=== PATIENT | female | born 1970 | race Caucasian/White ===

== ENCOUNTER 2016-10-29 18:36 | Emergency (ER) | payer MEDICAID ==
[2016-10-29] MEDS ORDERED: HYDROmorphone 0.5 MG/0.5 ML Syringe IVPUSH ONE (19:41)
[2016-10-29] MEDS ORDERED: Sodium Chloride 0.9% 1,000 ML IV SCH (19:45)
[2016-10-29] MEDS ORDERED: Ondansetron 4 MG/2 ML SDV IVPUSH ONE (20:03)
--- NOTE | 2016-10-29 20:40 | EDM.PDOC ---
[id number]: ABD PAIN Time Seen by Provider: 10/29/16 19:15 Source: Reports: Patient, Family History Limitations: Reports: No limitations - History of Present Illness INITIAL COMMENTS - FREE TEXT/NARRATIVE: 46-year-old female with diarrhea for the past 14 hours, but has now developed upper abdominal pain for the past 6 hours and a decrease in the diarrhea. Some nausea but no vomiting. She has a history of small bowel obstruction and it feels similar. No fevers or chills. Location: other (Across the upper abdomen) Quality: Reports: cramping Worsens with: Reports: other (Worsens with any oral intake including water) Associated Symptoms (-Female): Reports: diarrhea, nausea/vomiting. Denies: chest pain, back pain, shoulder pain, fever/chills - Related Data Allergies/ADRs: Allergies Allergy/AdvReac Type Severity Reaction Status Date / Time Sulfa (Sulfonamide Allergy Rash Verified 10/29/16 19:05 Antibiotics) Tetracyclines Allergy Rash Verified 10/29/16 19:05 Home Meds: Home Meds Ascorbic Acid [Vitamin C] 500 mg PO DAILY 02/23/16 [History] Cholecalciferol (Vitamin D3) [Vitamin D3] 2,000 unit PO DAILY 02/23/16 [History] Ferrous Sulfate [Iron] 325 mg PO DAILY 02/23/16 [History] Multivitamin [Multi-Vitamin Daily] 1 tab PO DAILY 02/23/16 [History] Calcium Citrate/Vitamin D3 [Calcium Citrate with D Tablet] 1 tab PO DAILY [History] Vitamin B Complex [B Complex] 1 tab PO DAILY 05/23/16 [History] Cyanocobalamin (Vitamin B-12) [Vitamin B-12] 1,000 mcg SL DAILY 08/25/16 [ History] Past Medical History HEENT History: Reports: Cataract, Impaired vision Cardiovascular History: Reports: Arrhythmia Other Cardiovascular History: hypotensive Respiratory History: Reports: None Gastrointestinal History: Reports: Bowel obstruction Genitourinary History: Reports: UTI, recurrent 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 Ablation on uterus. Musculoskeletal History: Reports: Fracture, Osteoarthritis Other Musculoskeletal History: ankle Neurological History: Reports: Headaches, chronic Psychiatric History: Reports: Anxiety, Depression, OCD Endocrine/Metabolic History: Reports: Other (see below) Other Endocrine/Metabolic History: Hypoglycemia Hematologic History: Reports: Anemia, B12 deficiency, Blood transfusion(s), Iron deficiency Immunologic History: Reports: None Oncologic (Cancer) History: Reports: None Dermatologic History: Reports: None - Infectious Disease History Infectious Disease History: Reports: Chicken pox - Past Surgical History Head Surgeries/Procedures: Reports: None HEENT Surgical History: Reports: Other (see below) Other HEENT Surgeries/Procedures: WISDOM TEETH EXTRACTED Cardiovascular Surgical History: Reports: None Respiratory Surgical History: Reports: None GI Surgical History: Reports: Bariatric procedure, Cholecystectomy, EGD, Hernia repair/other, Other (see below) Other GI Surgeries/Procedures: Exploratory surgery . Mesh wrapped around intestine. bowel obstruction surgery February 2016. RNY 2009 Female Surgical History: Reports: section, Tubal ligation Endocrine Surgical History: Reports: None Neurological Surgical History: Reports: Lumbar spine Musculoskeletal Surgical History: Reports: Carpal tunnel, Other (see below) Other Musculoskeletal Surgeries/Procedures:: back surgery, Ablation on neck Oncologic Surgical History: Reports: Biopsy of breast Dermatological Surgical History: Reports: Other (see below) Social & Family History - Family History Family Medical History: Noncontributory - Tobacco Use Smoking Status *Q: Never Smoker Second Hand Smoke Exposure: No - Caffeine Use Caffeine Use: Reports: Coffee - Alcohol Use Days Per Week of Alcohol Use: 4 Number of Drinks Per Day: 2 Total Drinks Per Week: 8 - Recreational Drug Use Recreational Drug Use: No Drug Use in Last 12 Months: No Recreational Drug Type: Reports: Marijuana/Hashish, Methamphetamine Recreational Drug Use Frequency: Not Used In Over 6 Months Recreational Drug Last Use: 17 YEARS AGO ED ROS GENERAL - Review of Systems Review Of Systems: See Below Constitutional: Reports: malaise. Denies: fever, chills HEENT: Reports: No symptoms Respiratory: Denies: Shortness of Breath Cardiovascular: Denies: Chest pain GI/Abdominal: Reports: Abdominal pain, Diarrhea, Nausea : Reports: no symptoms Skin: Reports: no symptoms Neurological: Reports: No Symptoms Psychiatric: Reports: No symptoms ED EXAM, GI/ABD - Physical Exam Exam: See Below Exam Limited By: No limitations General Appearance: alert, no apparent distress (Appears uncomfortable but not distressed) Eyes: bilateral: normal appearance Respiratory/Chest: no respiratory distress, lungs clear Cardiovascular: regular rate, rhythm GI/Abdominal: normal bowel sounds, soft, tenderness (Tender with some mild to moderate guarding across the upper abdomen) Neurological: alert, oriented Psychiatric: normal affect, normal mood Skin Exam: Warm, Dry Course - Vital Signs Last Recorded V/S: Last Vital Signs Temp 98.8 F 10/29/16 21:17 Pulse 82 10/29/16 21:17 Resp 16 10/29/16 21:17 BP 104/68 10/29/16 21:17 Pulse Ox 99 10/29/16 21:17 - Orders/Labs/Meds Orders: Active Orders 24 hr Category Date Time Status Abdomen 2V AP Flat Upright [CR] Stat Exams 10/29/16 19:41 Taken Abdomen Pelvis w Cont [CT] Stat Exams 10/29/16 20:36 Taken Labs: Laboratory Tests 10/29/16 10/29/16 Range/Units 19:48 19:48 WBC 10.7 (4.5-11.0) K/uL RBC 4.62 (3.30-5.50) M/uL Hgb 14.4 (12.0-15.0) g/dL Hct 43.5 (36.0-48.0) % MCV 94 (80-98) fL MCH 31 (27-31) pg MCHC 33 (32-36) % Plt Count 214 (150-400) K/uL Neut % (Auto) 90 H (36-66) % Lymph % (Auto) 5 L (24-44) % [place] % (Auto) 5 (2-6) % Eos % (Auto) 1 L (2-4) % Baso % (Auto) 0 (0-1) % Sodium 141 (140-148) mmol/L Potassium 4.1 (3.6-5.2) mmol/L Chloride 106 (100-108) mmol/L Carbon Dioxide 22 (21-32) mmol/L Anion Gap 13.0 (5.0-14.0) mmol/L BUN 17 (7-18) mg/dL Creatinine 0.7 (0.6-1.0) mg/dL Est Cr Clr Drug Dosing 96.62 mL/min Estimated GFR (MDRD) > 60 (>60) Glucose 111 H (74-106) mg/dL Calcium 8.0 L (8.5-10.1) mg/dL Meds: Medications Discontinued Medications Generic Name Dose Route Start Last Admin Trade Name Freq PRN Reason Stop Dose Admin Hydromorphone HCl 0.5 mg 10/29/16 19:41 10/29/16 20:00 Dilaudid IVPUSH 10/29/16 19:42 0.5 mg ONETIME ONE Administration Sodium Chloride 1,000 mls @ 1,000 mls/hr 10/29/16 19:45 10/29/16 19:59 Normal Saline IV 1,000 mls/hr ASDIRECTED LETY Administration Sodium Chloride 77 mls @ 3 mls/sec 10/29/16 20:50 10/29/16 20:58 Normal Saline IV 10/29/16 20:51 3 mls/sec ONETIME ONE Administration Iopamidol 123 ml 10/29/16 21:00 10/29/16 20:58 Isovue-300 (61%) IV 150 ml . DIRECTED LETY Administration Ondansetron HCl 4 mg 10/29/16 20:03 10/29/16 20:17 Zofran IVPUSH 10/29/16 20:04 4 mg ONETIME ONE Administration Sodium Chloride 10 ml 10/29/16 20:50 10/29/16 20:58 Saline Flush FLUSH 10 ml ONETIME PRN Administration PER RADIOLOGY PROTOCOL - Re-Assessments/Exams Free Text/Narrative Re-Assessment/Exam: 10/29/16 20:39 An IV was started and the patient was hydrated with 1 L of normal saline. CBC BMP were obtained. Patient was given 0.5 mg of Dilaudid and 4 mg of Zofran IV. Flat and upright x-ray showed several air-fluid levels, so this was followed with a CT of the abdomen and pelvis with IV contrast. 10/29/16 21:33 Patient responded well to the medication and fluids. CT of the abdomen showed a nonspecific enteritis and no evidence of acute bowel obstruction or other serious findings. Patient was feeling much better and was discharged to advance diet as tolerated recheck in 1 to 2 days if not improving. Departure - Departure Time of Disposition: 21:43 Disposition: Home, Self-Care 01 Condition: good Clinical Impression: Gastroenteritis, Abdominal pain Instructions: Viral Gastroenteritis, Adult, [id number] Referrals: PCP,None [Primary Care Provider] - Forms: ED Department Discharge Care Plan Goals: Increase diet as tolerated concentrating on fluids the first 12 hours. Consider recheck in 24-48 hours if not improving satisfactorily. Return anytime sooner if worsening or concerns. - My Orders Last 24 Hours: My Active Orders 10/29/16 19:41 Abdomen 2V AP Flat Upright [CR] Stat 10/29/16 20:36 Abdomen Pelvis w Cont [CT] Stat - Assessment/Plan Last 24 Hours: My Active Orders 10/29/16 19:41 Abdomen 2V AP Flat Upright [CR] Stat 10/29/16 20:36 Abdomen Pelvis w Cont [CT] Stat
[2016-10-29] MEDS ORDERED: Sodium Chloride 0.9% 10 ML Syringe FLUSH PRN (20:50)
[2016-10-29] MEDS ORDERED: Iopamidol 612 MG/ML 150 ML Bottle IV SCH (21:00)
[2016-10-29 21:18] VITALS: BP 104/68
--- NOTE | 2016-10-30 09:13 | CR ---
Abdomen 2V AP Flat Upright HISTORY: pain COMPARISON: CT scan 10/29/2016. FINDINGS: Scattered air-fluid levels on the upright film. No dilated loops of large or small bowel. Surgical clips in the gallbladder fossa and in the region of the stomach likely from prior gastric b ypass. No free air seen. Impression: Nonobstructive bowel gas pattern.
== END 2016-10-29 21:45 | disposition home or self-care (01) ==
LOC: JP.ED 18:36
DX: K52.9 Noninfective gastroenteritis and colitis, unspecified (principal); R10.10 Upper abdominal pain, unspecified; F41.9 Anxiety disorder, unspecified; F32.9 Major depressive disorder, single episode, unspecified; Z98.84 Bariatric surgery status; Z90.49 Acquired absence of other specified parts of digestive tract; Z98.51 Tubal ligation status; Z98.890 Other specified postprocedural states; Z79.899 Other long term (current) drug therapy; Z88.2 Allergy status to sulfonamides; Z88.1 Allergy status to other antibiotic agents
CPT/HCPCS: 36415; 74020; 74177; 80048; 85025; 96361; 96374; 96375; 99285; J1170; J2405; J7030; J7040; J7050

== ENCOUNTER 2021-02-07 12:47 | Inpatient (IN) | payer MEDICAID ==
--- NOTE | 2021-02-07 13:44 | EDM.PDOC ---
ED HPI GENERAL MEDICAL PROBLEM - General Chief Complaint: Abdominal Pain Stated Complaint: VIA [facility] Time Seen by Provider: 02/07/21 13:44 Source of Information: Reports: Patient History Limitations: Reports: No Limitations - History of Present Illness INITIAL COMMENTS - FREE TEXT/NARRATIVE: pt has had some small pains for the past few days. These would go away and then come back. Today she had sudden very severe which was persistent. She has not been having stools in the past 4 days. She has not been vomiting, Onset: Today, Sudden Duration: Hour(s): Location: Reports: Abdomen Associated Symptoms: Reports: Weakness Abdomen Pain Score (Numeric/FACES): 3 - Related Data Allergies Allergy/AdvReac Type Severity Reaction Status Date / Time Sulfa (Sulfonamide Allergy Rash Verified 02/07/21 12:57 Antibiotics) Tetracyclines Allergy Rash Verified 02/07/21 12:57 Home Meds: Home Meds NK [No Known Home Meds] 02/07/21 [History] Past Medical History HEENT History: Reports: Cataract, Impaired Vision Cardiovascular History: Reports: Arrhythmia Other Cardiovascular History: hypotensive Respiratory History: Reports: None Gastrointestinal History: Reports: Bowel Obstruction Genitourinary History: Reports: UTI, Recurrent 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 Ablation on uterus. Musculoskeletal History: Reports: Fracture, Osteoarthritis Other Musculoskeletal History: ankle Neurological History: Reports: Headaches, Chronic Psychiatric History: Reports: Anxiety, Depression, OCD Endocrine/Metabolic History: Reports: Other (See Below) Other Endocrine/Metabolic History: Hypoglycemia Hematologic History: Reports: Anemia, B12 Deficiency, Blood Transfusion(s), Iron Deficiency Immunologic History: Reports: None Oncologic (Cancer) History: Reports: None Dermatologic History: Reports: None - Infectious Disease History Infectious Disease History: Reports: Chicken Pox - Past Surgical History Head Surgeries/Procedures: Reports: None HEENT Surgical History: Reports: Other (See Below) Other HEENT Surgeries/Procedures: WISDOM TEETH EXTRACTED Cardiovascular Surgical History: Reports: None Respiratory Surgical History: Reports: None GI Surgical History: Reports: Bariatric Procedure, Cholecystectomy, EGD, Hernia Repair/Other, Other (See Below) Other GI Surgeries/Procedures: Exploratory surgery . Mesh wrapped around intestine. bowel obstruction surgery February 2016. RNY 2009 Female Surgical History: Reports: Section, Tubal Ligation Endocrine Surgical History: Reports: None Neurological Surgical History: Reports: Lumbar Spine Musculoskeletal Surgical History: Reports: Carpal Tunnel, Other (See Below) Other Musculoskeletal Surgeries/Procedures:: back surgery, Ablation on neck Oncologic Surgical History: Reports: Biopsy of Breast Dermatological Surgical History: Reports: Other (See Below) Social & Family History - Family History Family Medical History: No Pertinent Family History - Tobacco Use Tobacco Use Status *Q: Never Tobacco User Second Hand Smoke Exposure: No - Caffeine Use Caffeine Use: Reports: Coffee - Recreational Drug Use Recreational Drug Use: No ED ROS GENERAL - Review of Systems Review Of Systems: See Below Constitutional: Reports: No Symptoms HEENT: Reports: No Symptoms Respiratory: Reports: No Symptoms Cardiovascular: Reports: No Symptoms Endocrine: Reports: No Symptoms GI/Abdominal: Reports: Abdominal Pain, Constipation, Nausea Musculoskeletal: Reports: No Symptoms Skin: Reports: No Symptoms ED EXAM, GI/ABD - Physical Exam Exam: See Below Text/Narrative:: Pt arrived with pain in the rt upper and rt mid abdoman. Exam Limited By: No Limitations General Appearance: Alert, Moderate Distress, Other (pupils equal and reactive ) Ears: Normal TMs Nose: Normal Inspection Throat/Mouth: Normal Inspection Head: Atraumatic Neck: Normal Inspection Respiratory/Chest: No Respiratory Distress Cardiovascular: Regular Rate, Rhythm GI/Abdominal Exam: Tender, Other (pt is tender rt upper and mid abdoman. ) (Female) Exam: Normal External Exam Rectal (Female) Exam: Deferred Back Exam: Normal Inspection Extremities: Normal Inspection Neurological: Alert, Oriented, Normal Cognition Psychiatric: Anxious Course - Vital Signs Last Recorded V/S: Last Vital Signs Temp 36.3 C 02/07/21 12:58 Pulse 91 02/07/21 12:58 Resp 18 02/07/21 12:58 BP 124/78 02/07/21 12:58 Pulse Ox 97 02/07/21 12:58 - Orders/Labs/Meds Orders: Active Orders 24 hr Category Date Time Status Sodium Chloride 0.9% [Normal Saline] 1,000 ml Med 02/07/21 13:45 Active IV ASDIRECTED Medication Orders Sodium Chloride (Normal Saline) 1,000 mls @ 999 mls/hr IV ASDIRECTED LETY Last Admin: 02/07/21 13:54 Dose: 999 mls/hr Documented by: RU Labs: Laboratory Tests 02/07/21 02/07/21 02/07/21 Range/Units 13:55 13:55 13:55 WBC 7.2 (4.5-11.0) K/uL RBC 4.37 (3.30-5.50) M/uL Hgb 11.9 L D (12.0-15.0) g/dL Hct 37.4 (36.0-48.0) % MCV 86 (80-98) fL MCH 27 (27-31) pg MCHC 32 (32-36) % Plt Count 305 (150-400) K/uL Neut % (Auto) 80.9 H (36-66) % Lymph % (Auto) 12.9 L (24-44) % [place] % (Auto) 5.3 (2-6) % Eos % (Auto) 0.8 L (2-4) % Baso % (Auto) 0.1 (0-1) % Sodium 139 L (140-148) mmol/L Potassium 4.1 (3.6-5.2) mmol/L Chloride 103 (100-108) mmol/L Carbon Dioxide 27 (21-32) mmol/L Anion Gap 13.1 (5.0-14.0) mmol/L BUN 15 (7-18) mg/dL Creatinine 0.7 (0.6-1.0) mg/dL Est Cr Clr Drug Dosing 92.46 mL/min Estimated GFR (MDRD) > 60 (>60) Glucose 106 (74-106) mg/dL Calcium 8.3 L (8.5-10.1) mg/dL Total Bilirubin 0.4 (0.2-1.0) mg/dL AST 42 H D (15-37) U/L ALT 35 (12-78) U/L Alkaline Phosphatase 157 H D (46-116) U/L C-Reactive Protein 0.07 (0.0-0.3) mg/dL Total Protein 6.6 (6.4-8.2) g/dL Albumin 3.0 L (3.4-5.0) g/dL Globulin 3.6 H (2.3-3.5) g/dL Albumin/Globulin Ratio 0.8 L (1.2-2.2) Lipase 84 (73-393) U/L Urine Color (YELLOW) Urine Appearance (CLEAR) Urine pH (5.0-8.0) Ur Specific [place] (1.008-1.030) Urine Protein (NEGATIVE) mg/dL Urine Glucose (UA) (NEGATIVE) mg/dL Urine Ketones (NEGATIVE) mg/dL Urine Occult Blood (NEGATIVE) Urine Nitrite (NEGATIVE) Urine Bilirubin (NEGATIVE) Urine Urobilinogen (0.2-1.0) EU/dL Ur Leukocyte Esterase (NEGATIVE) Urine RBC (0-5) Urine WBC (0-5) Ur Epithelial Cells Amorphous Sediment Urine Bacteria Urine Mucus 02/07/21 Range/Units 15:16 WBC (4.5-11.0) K/uL RBC (3.30-5.50) M/uL Hgb (12.0-15.0) g/dL Hct (36.0-48.0) % MCV (80-98) fL MCH (27-31) pg MCHC (32-36) % Plt Count (150-400) K/uL Neut % (Auto) (36-66) % Lymph % (Auto) (24-44) % [place] % (Auto) (2-6) % Eos % (Auto) (2-4) % Baso % (Auto) (0-1) % Sodium (140-148) mmol/L Potassium (3.6-5.2) mmol/L Chloride (100-108) mmol/L Carbon Dioxide (21-32) mmol/L Anion Gap (5.0-14.0) mmol/L BUN (7-18) mg/dL Creatinine (0.6-1.0) mg/dL Est Cr Clr Drug Dosing mL/min Estimated GFR (MDRD) (>60) Glucose (74-106) mg/dL Calcium (8.5-10.1) mg/dL Total Bilirubin (0.2-1.0) mg/dL AST (15-37) U/L ALT (12-78) U/L Alkaline Phosphatase (46-116) U/L C-Reactive Protein (0.0-0.3) mg/dL Total Protein (6.4-8.2) g/dL Albumin (3.4-5.0) g/dL Globulin (2.3-3.5) g/dL Albumin/Globulin Ratio (1.2-2.2) Lipase (73-393) U/L Urine Color Yellow (YELLOW) Urine Appearance Cloudy A (CLEAR) Urine pH 6.5 (5.0-8.0) Ur Specific [place] 1.025 (1.008-1.030) Urine Protein Negative (NEGATIVE) mg/dL Urine Glucose (UA) Negative (NEGATIVE) mg/dL Urine Ketones Negative (NEGATIVE) mg/dL Urine Occult Blood Trace-intact H (NEGATIVE) Urine Nitrite Positive H (NEGATIVE) Urine Bilirubin Negative (NEGATIVE) Urine Urobilinogen 2.0 H (0.2-1.0) EU/dL Ur Leukocyte Esterase Negative (NEGATIVE) Urine RBC 0-5 (0-5) Urine WBC Not seen (0-5) Ur Epithelial Cells Not seen Amorphous Sediment Few Urine Bacteria Many Urine Mucus Not seen Meds: Medications Generic Name Dose Route Start Last Admin Trade Name Freq PRN Reason Stop Dose Admin Sodium Chloride 1,000 mls @ 999 mls/hr 02/07/21 13:45 02/07/21 13:54 Normal Saline IV 999 mls/hr ASDIRECTED LETY Administration Discontinued Medications Generic Name Dose Route Start Last Admin Trade Name Freq PRN Reason Stop Dose Admin Hydromorphone HCl 0.5 mg 02/07/21 13:57 02/07/21 14:16 Hydromorphone 0.5 Mg/0.5 Ml Syringe IVPUSH 02/07/21 13:58 0.5 mg ONETIME ONE Administration Sodium Chloride 70 mls @ 3 mls/sec 02/07/21 14:49 02/07/21 15:04 Normal Saline IV 02/07/21 14:50 3 mls/sec ASDIRECTED ONE Administration Iopamidol 129 ml 02/07/21 14:49 02/07/21 15:04 Iopamidol 612 Mg/Ml 150 Ml Bottle IV 129 ml . DIRECTED PRN Administration RADIOLOGY EXAM - Re-Assessments/Exams Free Text/Narrative Re-Assessment/Exam: 02/07/21 16:05 pt has a normal wbc. her crp is normal. Her urine does look infected. Her cat scan of the abdoman shows constipation and a partial small bowel obstruction Departure - Departure Time of Disposition: 16:06 Disposition: Admitted As Inpatient 65 Condition: Fair Clinical Impression: Partial small bowel obstruction, Dehydration, UTI (urinary tract infection) - Discharge Information Referrals: PCP,None [Primary Care Provider] - Forms: ED Department Discharge Care Plan Goals: admit to Dr Wells Sepsis Event Note (ED) - Evaluation Sepsis Screening Result: No Definite Risk - Focused Exam Vital Signs: Vital Signs Temp Pulse Resp BP Pulse Ox 02/07/21 12:58 36.3 C 91 18 124/78 97 02/07/21 12:49 36.3 C 91 18 124/78 97 - My Orders Last 24 Hours: My Active Orders 02/07/21 13:45 Sodium Chloride 0.9% [Normal Saline] 1,000 ml IV ASDIRECTED - Assessment/Plan Last 24 Hours: My Active Orders 02/07/21 13:45 Sodium Chloride 0.9% [Normal Saline] 1,000 ml IV ASDIRECTED
[2021-02-07] MEDS ORDERED: Sodium Chloride 0.9% 1,000 ML IV SCH (13:45)
[2021-02-07] MEDS ORDERED: HYDROmorphone 0.5 MG/0.5 ML Syringe IVPUSH ONE (13:57)
[2021-02-07] MEDS ORDERED: Iopamidol 612 MG/ML 150 ML Bottle IV PRN (14:49)
--- NOTE | 2021-02-07 15:26 | CT ---
Abdomen Pelvis w Cont CLINICAL HISTORY: Right-sided abdominal pain COMPARISON: 2017. TECHNIQUE: Transverse scans were obtained from the base of the lungs to the pubic symphysis following oral contrast and IV infusion of contrast.Auto dosage reduction and iterative reconstructiontechniques employed. FINDINGS: Patient is status post bariatric surgery. There is moderate distention of small bowel in the right the abdomen involving the anastomotic site. There is dilated small bowel in the right lower quadrant. There is some equalization of bowel content in this area. The lung bases show some patchy atelectasis bilaterally. The liver shows some mild intrahepatic ductal prominence.. The gallbladder has been removed. The spleen has a normal size and shape. The pancreas shows no mass or inflammatory change. The adrenal glands appear normal bilaterally . The kidneys show no mass, stones or hydronephrosis. The ureters have a normal course and caliber. The bladder has normal contour. Uterus is normal contour.. The aorta is free of aneurysm. There is no suspicious retroperitoneal adenopathy. IMPRESSION: Previous bariatric surgery and apparent revision Moderate dilatation of small bowel loop is in the right abdomen. There are normal caliber small bowel loops in the left abdomen. Partial distal small bowel obstruction suspected Moderate fecal retention right colon
[2021-02-07] MEDS ORDERED: cefTRIAXone 1 GM in Sodium Chloride 0.9% 50 ML IV ONE (16:08)
[2021-02-07] MEDS ORDERED: Promethazine 12.5 MG in Sodium Chloride 0.9% 50 ML IV PRN (16:21)
[2021-02-07] MEDS ORDERED: Promethazine 25 MG in Sodium Chloride 0.9% 50 ML IV PRN (16:22)
[2021-02-07] MEDS ORDERED: Ondansetron 4 MG/2 ML SDV IVPUSH PRN (17:00)
[2021-02-07] MEDS ORDERED: diphenhydrAMINE 50 MG/ML SDV IVPUSH PRN (17:00)
[2021-02-07] MEDS ORDERED: Scopolamine 1.5 MG Transdermal Patch TOP PRN (17:00)
[2021-02-07] MEDS ORDERED: Nicotine 14 MG/24 Hr Patch TRDERM PRN (17:00)
[2021-02-07] MEDS ORDERED: fentaNYL 100 MCG/2 ML SDV IVPUSH PRN (17:00)
[2021-02-07] MEDS ORDERED: diphenhydrAMINE 25 MG Cap PO PRN (17:00)
[2021-02-07] MEDS: Sodium Chloride 0.9% 1,000 ML IV SCH (17:40)
[2021-02-07] MEDS: Morphine 4 MG/ML Syringe IVPUSH PRN ×3 (18:31→23:17)
[2021-02-07 19:02] LABS: CORONAVIRUS COVID-19 NAA NEGATIVE (NEGATIVE)
[2021-02-07] MEDS: Lactulose Soln 10 GM/15 ML 15 ML UD Cup PO SCH (20:55)
[2021-02-08] MEDS: Morphine 4 MG/ML Syringe IVPUSH PRN ×3 (01:01→23:34)
[2021-02-08] MEDS: Sodium Chloride 0.9% 1,000 ML IV SCH ×4 (02:22→23:13)
[2021-02-08] MEDS: Lactulose Soln 10 GM/15 ML 15 ML UD Cup PO SCH ×2 (09:23→20:32)
[2021-02-08] MEDS: CHECK SCOPOLAMINE PATCH TOP SCH (09:25)
[2021-02-08] MEDS ORDERED: Bupivacaine 0.5%/EPINEPHrine 1:200,000 50 ML MDV ONE (11:06)
--- NOTE | 2021-02-08 12:40 | CR ---
Abdomen 2V AP Flat Upright CLINICAL HISTORY: Right abdominal pain FINDINGS: There is moderate retained feces in the right colon. There are scattered loops of dilated small bowel with air-fluid levels on the right. Patient is status post bariatric surgery and ventral hernia repair. IMPRESSION: Persistent moderate right-sided small bowel distention with air-fluid levels Moderate fecal retention right colon
--- NOTE | 2021-02-08 13:53 | CR ---
CHEST: 2 view CLINICAL HISTORY:Cough COMPARISON:CT 2016 FINDINGS: Patient has a diffuse right lung infiltrate. Heart size and pulmonary vascularity are normal. Left lung is clear Impression: Diffuse right lung pneumonia
[2021-02-08] MEDS: cefTRIAXone 1 GM in Sodium Chloride 0.9% 50 ML IV SCH (15:44)
--- NOTE | 2021-02-08 16:58 | PCM.CONS ---
H&P History of Present Illness - General Date of Service: 02/08/21 Admit Problem/Dx: Admission Diagnosis/Problem Admission Diagnosis/Problem Small bowel obstruction due to adhesions Source of Information: Patient, RN Notes Reviewed History Limitations: Reports: No Limitations - History of Present Illness Initial Comments - Free Text/Narative: Ms. Carrasco is a 50-year-old woman who I been asked to see by Dr. Wells for recommendations concerning management of right lung pneumonia. She reports a history of productive cough for the past week, with purulent sputum. She otherwise has been feeling relatively well until yesterday when she did develop abdominal pain. She was seen and evaluated in the emergency department. CT scan of the abdomen showed evidence of at least a partial bowel obstruction. She was admitted to the hospital and given IV fluids. She denies significant abdominal pain and has been passing a small amount of gas. Urinalysis obtained in the emergency department showed evidence of possible urinary tract infection and she has been treated with ceftriaxone yesterday and again today. Since admission she has developed increased respiratory symptoms with shortness of breath, pleuritic chest pain and chills. She has not yet had a documented temperature elevation. White blood cell count was normal on admission but mildly elevated this morning. She denies history of significant tobacco use or underlying pulmonary disease. Abdomen Pain Score (Numeric/FACES): 2 - Related Data Allergies/Adverse Reactions: Allergies Allergy/AdvReac Type Severity Reaction Status Date / Time Sulfa (Sulfonamide Allergy Rash Verified 02/07/21 12:57 Antibiotics) Tetracyclines Allergy Rash Verified 02/07/21 12:57 Home Medications: Home Meds NK [No Known Home Meds] 02/07/21 [History] Past Medical History HEENT History: Reports: Cataract, Impaired Vision Cardiovascular History: Reports: Arrhythmia Other Cardiovascular History: hypotensive Respiratory History: Reports: None Gastrointestinal History: Reports: Bowel Obstruction Genitourinary History: Reports: UTI, Recurrent 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 Ablation on uterus. Musculoskeletal History: Reports: Fracture, Osteoarthritis Other Musculoskeletal History: ankle Neurological History: Reports: Headaches, Chronic Psychiatric History: Reports: Anxiety, Depression, OCD Endocrine/Metabolic History: Reports: Other (See Below) Other Endocrine/Metabolic History: Hypoglycemia Hematologic History: Reports: Anemia, B12 Deficiency, Blood Transfusion(s), Iron Deficiency Immunologic History: Reports: None Oncologic (Cancer) History: Reports: None Dermatologic History: Reports: None - Infectious Disease History Infectious Disease History: Reports: Chicken Pox - Past Surgical History Head Surgeries/Procedures: Reports: None HEENT Surgical History: Reports: Other (See Below) Other HEENT Surgeries/Procedures: WISDOM TEETH EXTRACTED Cardiovascular Surgical History: Reports: None Respiratory Surgical History: Reports: None GI Surgical History: Reports: Bariatric Procedure, Cholecystectomy, EGD, Hernia Repair/Other, Other (See Below) Other GI Surgeries/Procedures: Exploratory surgery . Mesh wrapped around intestine. bowel obstruction surgery February 2016. RNY 2009 Female Surgical History: Reports: Section, Tubal Ligation Endocrine Surgical History: Reports: None Neurological Surgical History: Reports: Lumbar Spine Musculoskeletal Surgical History: Reports: Carpal Tunnel, Other (See Below) Other Musculoskeletal Surgeries/Procedures:: back surgery, Ablation on neck Oncologic Surgical History: Reports: Biopsy of Breast Dermatological Surgical History: Reports: Other (See Below) Social & Family History - Family History Family Medical History: No Pertinent Family History - Tobacco Use Tobacco Use Status *Q: Never Tobacco User Second Hand Smoke Exposure: No - Caffeine Use Caffeine Use: Reports: Coffee - Recreational Drug Use Recreational Drug Use: No H&P Review of Systems - Review of Systems: Review Of Systems: See Below General: Reports: Chills, Malaise, Weakness, Fatigue HEENT: Reports: No Symptoms Pulmonary: Reports: Shortness of Breath, Cough. Denies: Wheezing, Pleuritic Chest Pain, Sputum, Hemoptysis Cardiovascular: Reports: Dyspnea on Exertion. Denies: Chest Pain, Palpitations, Orthopnea, PND, Edema, Lightheadedness, Syncope Gastrointestinal: Reports: Abdominal Pain, Distension, Flatus. Denies: Diarrhea, Difficulty Swallowing, Hematemesis, Hematochezia, Melena, Nausea, Vomiting Genitourinary: Reports: No Symptoms Musculoskeletal: Reports: No Symptoms Skin: Reports: No Symptoms Psychiatric: Reports: No Symptoms Neurological: Reports: No Symptoms Hematologic/Lymphatic: Reports: No Symptoms Immunologic: Reports: No Symptoms Exam - Exam Exam: See Below - Vital Signs Vital Signs: Last Vital Signs Temp 97.5 F 02/08/21 15:19 Pulse 100 02/08/21 15:19 Resp 18 02/08/21 15:19 BP 99/57 L 02/08/21 15:19 Pulse Ox 97 02/08/21 15:19 Weight: 210 lb 12.191 oz - Exam General: Alert, Oriented, Cooperative, Moderate Distress HEENT: Conjunctiva Clear, Hearing Intact, Mucosa Moist & [place], Normal Nasal Septum, Posterior Pharynx Clear, Pupils Equal Neck: Supple, Trachea Midline, +2 Carotid Pulse wo Bruit Lungs: Clear to Auscultation, Normal Respiratory Effort Cardiovascular: Regular Rate, Regular Rhythm, Normal S1, Normal S2. No: Systolic Murmur, Diastolic Murmur GI/Abdominal Exam: Soft, No Organomegaly, Distended, Tender. No: Guarding, Rigid, Rebound Back Exam: Normal Inspection, Full Range of Motion Extremities: Non-Tender, No Pedal Edema Skin: Warm, Dry, Intact Neurological: Cranial Nerves Intact, Strength Equal Bilateral, Normal Speech, Normal Tone, Sensation Intact. No: Focal Deficit Neuro Extensive - Mental Status: Alert, Oriented x3, Normal Mood/Affect, Normal Cognition, Memory Intact - Patient Data Lab Results Last 24 hrs: Laboratory Results - last 24 hr 02/07/21 02/08/21 02/08/21 Range/Units 18:20 05:39 05:39 WBC 12.3 H (4.5-11.0) K/uL RBC 4.30 (3.30-5.50) M/uL Hgb 11.8 L (12.0-15.0) g/dL Hct 37.2 (36.0-48.0) % MCV 87 (80-98) fL MCH 27 (27-31) pg MCHC 32 (32-36) % Plt Count 297 (150-400) K/uL Sodium 140 (140-148) mmol/L Potassium 3.9 (3.6-5.2) mmol/L Chloride 104 (100-108) mmol/L Carbon Dioxide 29 (21-32) mmol/L Anion Gap 7.1 (5.0-14.0) mmol/L BUN 10 (7-18) mg/dL Creatinine 0.6 (0.6-1.0) mg/dL Est Cr Clr Drug Dosing 107.58 mL/min Estimated GFR (MDRD) > 60 (>60) Glucose 105 (74-106) mg/dL Calcium 8.0 L (8.5-10.1) mg/dL Influenza Type A RNA Negative (NEGATIVE) RSV RNA (INAAT) Negative (NEGATIVE) Influenza Type B RNA Negative (NEGATIVE) SARS-CoV-2 RNA (PETER) Negative (NEGATIVE) Result Diagrams: 02/08/21 05:39 02/08/21 05:39 Neel Results Last 24 hrs: Microbiology 02/07/21 17:39 Urine Culture - Preliminary Urine, Bladder Sepsis Event Note - Evaluation Sepsis Screening Result: No Definite Risk - Focused Exam Vital Signs: Vital Signs Temp Pulse Resp BP Pulse Ox 02/08/21 15:19 97.5 F 100 18 99/57 L 97 02/08/21 12:35 97.2 F 88 16 108/56 L 95 02/08/21 09:25 98.2 F 85 16 106/52 L 94 L 02/08/21 05:00 98.0 F 70 16 92/44 L 92 L *Q Meaningful Use (ADM) - VTE Risk Assess *Q Each Risk Factor Represents 1 Point: Age 41 - 59 years, Obesity ( BMI > 25 kg/m2), Serious lung disease including pneumonia Total Score 1 Point Risk Factors: 3 Each Risk Factor Represents 2 Points: None Total Score 2 Point Risk Factors: 0 Each Risk Factor Represents 3 Points: None Total Score 3 Point Risk Factors: 0 Each Risk Factor Represents 5 Points: None Total Score 5 Point Risk Factors: 0 Venous Thromboembolism Risk Factor Score *Q: 3 Consult PN Assessment/Plan Procedures: Procedures ASSAY ALKALINE PHOSPHATASE (05/27/16) ASSAY OF LIPASE (05/19/16) BILIRUBIN TOTAL (05/27/16) COMPLETE CBC AUTOMATED (05/27/16) COMPLETE CBC W/AUTO DIFF WBC (10/29/16) CT ABD & PELV W/CONTRAST (10/29/16) EMERGENCY DEPT VISIT (10/29/16) HYDRATE IV INFUSION ADD-ON (10/29/16) LAPAROSCOPIC CHOLECYSTECTOMY (05/27/16) MEASURE BLOOD OXYGEN LEVEL (05/27/16) METABOLIC PANEL TOTAL CA (10/29/16) REPAIR LIVER WOUND (05/27/16) ROUTINE VENIPUNCTURE (10/29/16) THER/PROPH/DIAG INJ IV PUSH (10/29/16) TISSUE EXAM BY PATHOLOGIST (05/27/16) TX/PRO/DX INJ NEW DRUG ADDON (10/29/16) X-RAY EXAM OF ABDOMEN (10/29/16) Problem List Initiated/Reviewed/Updated: Yes My Orders Last 24 Hours: My Active Orders 02/08/21 16:00 cefTRIAXone [Rocephin] 1 gm Sodium Chloride 0.9% [Normal Saline] 50 ml IV Q24H 02/08/21 16:50 CULTURE BLOOD [BC] Stat CULTURE BLOOD [BC] Stat Blood Culture x2 Reflex Set [OM.PC] Urgent 02/08/21 17:00 Levofloxacin/Dextrose 5%-Water [Levaquin in D5W 750 MG/150 ML] 750 mg Premix Bag 1 bag IV Q24H Sodium Chloride 0.9% @ 75 MLS/HR(1000ml) Sodium Chloride 0.9% [Normal Saline] 1,000 ml IV ASDIRECTED Plan: ASSESSMENT AND RECOMMENDATIONS COMMUNITY ACQUIRED PNEUMONIA-identified on chest x-ray today. She had symptoms of cough with sputum production for the past week. White blood cell count normal on admission, mildly elevated today. No evidence of underlying sepsis. -Blood cultures pending -IV ceftriaxone and levofloxacin, pending culture results POSSIBLE URINARY TRACT INFECTION-she denies significant symptoms, urinalysis suggestive of infection -Urine culture pending -IV ceftriaxone, pending culture results PARTIAL SMALL BOWEL OBSTRUCTION-abdominal pain, history of prior abdominal surgeries including Hans-en-Y gastric bypass. Evidence of obstruction noted on CT scan obtained in the emergency department yesterday. -N.p.o. -Conservative management -Surgical follow-up per Dr. Wells Requesting Provider: [facility]ER Date Consult Requested: 02/08/21 Reason for Consult: Right lung pneumonia Patient History Reviewed: Yes
[2021-02-08] MEDS: Levofloxacin/Dextrose 5%-Water 750 MG in Premix Bag 1 BAG IV SCH (17:11)
[2021-02-09] MEDS: Morphine 4 MG/ML Syringe IVPUSH PRN ×4 (03:45→22:19)
[2021-02-09] MEDS: CHECK SCOPOLAMINE PATCH TOP SCH (10:17)
[2021-02-09] MEDS: Lactulose Soln 10 GM/15 ML 15 ML UD Cup PO SCH ×3 (10:17→20:00)
--- NOTE | 2021-02-09 11:22 | PCM.CONSN ---
- General Info Date of Service: 02/09/21 Subjective Update: Ms. Carrasco has remained fairly stable since yesterday. Continues to experience some shortness of breath and cough. Respiratory rate has been within desired range and oxygenation has been adequate on room air. She has remained afebrile and white blood cell count is within normal range. No nausea or vomiting and she is passing more gas this morning but has not yet had a bowel movement. Functional Status: Reports: Urinating - Review of Systems General: Reports: Weakness, Fatigue. Denies: Fever, Chills Pulmonary: Reports: Shortness of Breath, Cough. Denies: Pleuritic Chest Pain, Sputum, Hemoptysis, Wheezing Cardiovascular: Reports: Dyspnea on Exertion. Denies: Chest Pain, Palpitations, Orthopnea, PND, Edema, Lightheadedness Gastrointestinal: Reports: No Symptoms - Patient Data Vitals - Most Recent: Last Vital Signs Temp 95.1 F L 02/09/21 07:38 Pulse 90 02/09/21 07:38 Resp 16 02/09/21 07:38 BP 117/70 02/09/21 07:38 Pulse Ox 93 L 02/09/21 07:38 Weight - Most Recent: 210 lb 12.191 oz I&O - Last 24 Hours: Intake & Output 02/08/21 02/09/21 02/09/21 22:59 06:59 14:59 Intake Total 1438 1171 Output Total 600 Balance 838 1171 Lab Results Last 24 Hours: Laboratory Results - last 24 hr 02/09/21 02/09/21 Range/Units 08:20 08:20 WBC 9.3 (4.5-11.0) K/uL RBC 3.83 (3.30-5.50) M/uL Hgb 10.4 L (12.0-15.0) g/dL Hct 33.3 L (36.0-48.0) % MCV 87 (80-98) fL MCH 27 (27-31) pg MCHC 31 L (32-36) % Plt Count 266 (150-400) K/uL Neut % (Auto) 84.5 H (36-66) % Lymph % (Auto) 9.6 L (24-44) % [place] % (Auto) 5.0 (2-6) % Eos % (Auto) 0.8 L (2-4) % Baso % (Auto) 0.1 (0-1) % Sodium 140 (140-148) mmol/L Potassium 3.1 L (3.6-5.2) mmol/L Chloride 104 (100-108) mmol/L Carbon Dioxide 26 (21-32) mmol/L Anion Gap 13.1 (5.0-14.0) mmol/L BUN 8 (7-18) mg/dL Creatinine 0.6 (0.6-1.0) mg/dL Est Cr Clr Drug Dosing 107.58 mL/min Estimated GFR (MDRD) > 60 (>60) Glucose 89 (74-106) mg/dL Calcium 7.8 L (8.5-10.1) mg/dL Neel Results Last 24 Hours: Microbiology 02/07/21 17:39 Urine Culture - Final Urine, Bladder Escherichia Coli Med Orders - Current: Current Medications Acetaminophen (Acetaminophen 325 Mg Tab) 650 mg PO Q4H PRN PRN Reason: Pain Diphenhydramine HCl (Diphenhydramine 25 Mg Cap) 25 - 50 mg PO Q4H PRN PRN Reason: Itching Diphenhydramine HCl (Diphenhydramine 50 Mg/Ml Sdv) 25 - 50 mg IVPUSH Q4H PRN PRN Reason: Itching Fentanyl (Fentanyl 100 Mcg/2 Ml Sdv) 10 - 30 mcg IVPUSH Q1H PRN PRN Reason: Pain Promethazine HCl 12.5 mg/ (Sodium Chloride) 50.5 mls @ 100 mls/hr IV Q8H PRN PRN Reason: NAUSEA Promethazine HCl 25 mg/ Sodium (Chloride) 51 mls @ 100 mls/hr IV Q8H PRN PRN Reason: NAUSEA Ceftriaxone Sodium 1 gm/ (Sodium Chloride) 50 mls @ 100 mls/hr IV Q24H [facility] Last Admin: 02/08/21 15:44 Dose: 100 mls/hr Documented by: Levofloxacin/Dextrose 750 mg/ (Premix) 150 mls @ 100 mls/hr IV Q24H [facility] Last Admin: 02/08/21 17:11 Dose: 100 mls/hr Documented by: Sodium Chloride (Normal Saline) 1,000 mls @ 75 mls/hr IV ASDIRECTED [facility] Last Admin: 02/08/21 23:13 Dose: 75 mls/hr Documented by: Potassium Chloride 20 meq/Lidocaine HCl 2 ml/ Sodium Chloride 112 mls @ 56 mls/hr IV Q2H [facility] Stop: 02/09/21 14:29 Potassium Chloride 40 meq/ (Premix) 100 mls @ 25 mls/hr IV ONETIME ONE Stop: 02/09/21 20:59 Lactulose (Lactulose Soln 10 Gm/15 Ml 15 Ml Ud Cup) 20 gm PO BID [facility] Last Admin: 02/09/21 10:17 Dose: 20 gm Documented by: Morphine Sulfate (Morphine 4 Mg/Ml Syringe) 1 - 3 mg IVPUSH Q1H PRN PRN Reason: Pain Last Admin: 02/09/21 08:06 Dose: 2 mg Documented by: Nicotine (Nicotine 14 Mg/24 Hr Patch) 14 mg TRDERM Q24H PRN PRN Reason: SMOKING CESSATION Check Scopolamine (Patch) 1 each TOP DAILY [facility] Last Admin: 02/09/21 10:17 Dose: Not Given Documented by: Ondansetron HCl (Ondansetron 4 Mg/2 Ml Sdv) 4 mg IVPUSH Q8H PRN PRN Reason: Nausea Last Admin: 02/07/21 18:38 Dose: 4 mg Documented by: Scopolamine (Scopolamine 1.5 Mg Transdermal Patch) 1.5 mg TOP Q72H PRN PRN Reason: Nausea Last Admin: 02/07/21 21:38 Dose: 1.5 mg Documented by: Discontinued Medications Hydromorphone HCl (Hydromorphone 0.5 Mg/0.5 Ml Syringe) 0.5 mg IVPUSH ONETIME ONE Stop: 02/07/21 13:58 Last Admin: 02/07/21 14:16 Dose: 0.5 mg Documented by: Sodium Chloride (Normal Saline) 1,000 mls @ 999 mls/hr IV ASDIRECTED [facility] Last Admin: 02/07/21 13:54 Dose: 999 mls/hr Documented by: Sodium Chloride (Normal Saline) 70 mls @ 3 mls/sec IV ASDIRECTED ONE Stop: 02/07/21 14:50 Last Admin: 02/07/21 15:04 Dose: 3 mls/sec Documented by: Ceftriaxone Sodium 1 gm/ (Sodium Chloride) 50 mls @ 100 mls/hr IV ONETIME ONE Stop: 02/07/21 16:37 Last Admin: 02/07/21 17:46 Dose: 100 mls/hr Documented by: Sodium Chloride (Normal Saline) 1,000 mls @ 125 mls/hr IV ASDIRECTED [facility] Last Admin: 02/08/21 09:28 Dose: 125 mls/hr Documented by: Iopamidol (Iopamidol 612 Mg/Ml 150 Ml Bottle) 129 ml IV . DIRECTED PRN PRN Reason: RADIOLOGY EXAM Last Admin: 02/07/21 15:04 Dose: 129 ml Documented by: - Exam General: Alert, Oriented, Cooperative, Mild Distress Lungs: Clear to Auscultation, Normal Respiratory Effort, Decreased Breath Sounds Cardiovascular: Regular Rate, Regular Rhythm, No Murmurs GI/Abdominal Exam: Soft, No Organomegaly, Tender. No: Distended, Guarding, Rigid, Rebound Extremities: Non-Tender, Pedal Edema Sepsis Event Note - Evaluation Sepsis Screening Result: No Definite Risk - Focused Exam Vital Signs: Vital Signs Temp Pulse Resp BP Pulse Ox 02/09/21 07:38 95.1 F L 90 16 117/70 93 L 02/09/21 03:46 97.1 F 77 16 107/59 L 93 L 02/08/21 23:38 96.7 F L 83 15 88/41 L 93 L Consult PN Assessment/Plan Procedures: Procedures ASSAY ALKALINE PHOSPHATASE (05/27/16) ASSAY OF LIPASE (05/19/16) BILIRUBIN TOTAL (05/27/16) COMPLETE CBC AUTOMATED (05/27/16) COMPLETE CBC W/AUTO DIFF WBC (10/29/16) CT ABD & PELV W/CONTRAST (10/29/16) EMERGENCY DEPT VISIT (10/29/16) HYDRATE IV INFUSION ADD-ON (10/29/16) LAPAROSCOPIC CHOLECYSTECTOMY (05/27/16) MEASURE BLOOD OXYGEN LEVEL (05/27/16) METABOLIC PANEL TOTAL CA (10/29/16) REPAIR LIVER WOUND (05/27/16) ROUTINE VENIPUNCTURE (10/29/16) THER/PROPH/DIAG INJ IV PUSH (10/29/16) TISSUE EXAM BY PATHOLOGIST (05/27/16) TX/PRO/DX INJ NEW DRUG ADDON (10/29/16) X-RAY EXAM OF ABDOMEN (10/29/16) Problem List Initiated/Reviewed/Updated: Yes My Orders Last 24 Hours: My Active Orders 02/08/21 16:00 cefTRIAXone [Rocephin] 1 gm Sodium Chloride 0.9% [Normal Saline] 50 ml IV Q24H 02/08/21 16:50 Blood Culture x2 Reflex Set [OM.PC] Urgent 02/08/21 17:00 Levofloxacin/Dextrose 5%-Water [Levaquin in D5W 750 MG/150 ML] 750 mg Premix Bag 1 bag IV Q24H Sodium Chloride 0.9% [Normal Saline] 1,000 ml IV ASDIRECTED 02/08/21 17:10 CULTURE BLOOD [BC] Stat 02/08/21 17:18 CULTURE BLOOD [BC] Stat 02/09/21 10:30 Potassium Chloride 20 meq Lidocaine 1% [Xylocaine 1%] 2 ml Sodium Chloride 0.9% [Normal Saline] 100 ml IV Q2H 02/09/21 10:49 Acetaminophen [TylenoL] 650 mg PO Q4H PRN 02/09/21 17:00 Potassium Chloride Riders [KCL in Water 40 MEQ/100 ML] 40 meq Premix Bag 1 bag IV ONETIME 02/10/21 05:00 BASIC METABOLIC PANEL,BMP [CHEM] Timed Plan: ASSESSMENT AND RECOMMENDATIONS COMMUNITY ACQUIRED PNEUMONIA-identified on chest x-ray. Stable over the past 24 hours with no significant hypoxia or fevers. White blood cell count has normalized and she is not requiring supplemental oxygen. -Blood cultures pending -IV ceftriaxone and levofloxacin, pending culture results POSSIBLE URINARY TRACT INFECTION-she denies significant symptoms, urinalysis suggestive of infection -Urine culture pending -IV ceftriaxone, pending culture results PARTIAL SMALL BOWEL OBSTRUCTION-abdominal pain, history of prior abdominal surgeries including Hans-en-Y gastric bypass. Evidence of obstruction noted on CT scan obtained in the emergency department. She is passing more gas this morning but has not yet had a bowel movement. -N.p.o. -Conservative management -Surgical follow-up per Dr. Wells
[2021-02-09] MEDS: Acetaminophen 325 MG Tab PO PRN ×2 (11:24→22:19)
[2021-02-09] MEDS: Sodium Chloride 0.9% 1,000 ML IV SCH (11:54)
[2021-02-09] MEDS: Potassium Chloride 20 MEQ, Lidocaine 1% 2 ML in Sodium Chloride 0.9% 100 ML IV SCH ×4 (11:54→23:23)
[2021-02-09] MEDS: cefTRIAXone 1 GM in Sodium Chloride 0.9% 50 ML IV SCH (17:22)
[2021-02-09] MEDS: Levofloxacin/Dextrose 5%-Water 750 MG in Premix Bag 1 BAG IV SCH (18:25)
[2021-02-10] MEDS: Sodium Chloride 0.9% 1,000 ML IV SCH (03:19)
[2021-02-10] MEDS: Morphine 4 MG/ML Syringe IVPUSH PRN (03:24)
[2021-02-10 07:57] VITALS: BP 113/65; PULSE 89
[2021-02-10] MEDS ORDERED: Potassium Chloride 20 MEQ Tab.ER PO ONE (08:00)
[2021-02-10] MEDS: Acetaminophen 325 MG Tab PO PRN (08:13)
[2021-02-10] MEDS: CHECK SCOPOLAMINE PATCH TOP SCH (08:14)
[2021-02-10] MEDS: Lactulose Soln 10 GM/15 ML 15 ML UD Cup PO SCH (08:20)
--- NOTE | 2021-02-10 09:36 | PCM.DCSUM1 ---
Discharge Summary - Hospital Course Brief History: Ms. Carrasco is a 50-year-old woman who was admitted through the emergency department with abdominal pain and nausea secondary to partial small bowel obstruction. - Discharge Data Discharge Date: 02/10/21 Discharge Disposition: Home, Self-Care 01 Condition: Fair - Referral to Home Health Primary Care Physician: PCP None - Discharge Diagnosis/Problem(s) (1) Pneumonia SNOMED Code(s): 646380708 ICD Code: J18.9 - PNEUMONIA, UNSPECIFIED ORGANISM Status: Acute Current Visit: Yes Qualifiers: Laterality: right (2) Cystitis SNOMED Code(s): 07162111 ICD Code: N30.90 - CYSTITIS, UNSPECIFIED WITHOUT HEMATURIA Status: Acute Current Visit: Yes (3) Partial small bowel obstruction SNOMED Code(s): 221494150 ICD Code: K56.600 - PARTIAL INTESTINAL OBSTRUCTION, UNSPECIFIED TO CAUSE Status: Acute Current Visit: Yes (4) Dehydration SNOMED Code(s): 22111488 ICD Code: E86.0 - DEHYDRATION Status: Acute Current Visit: Yes (5) Hx of gastric bypass SNOMED Code(s): 636460554 ICD Code: Z98.84 - BARIATRIC SURGERY STATUS Status: Chronic Current Visit: No - Patient Summary/Data Hospital Course: Ms. Carrasco is a 50-year-old woman who was admitted through the emergency department with abdominal pain and nausea secondary to partial small bowel obstruction. She is status post previous Hans-en-Y gastric bypass surgery. She developed abdominal pain on the day of admission and presented to the emergency department for further evaluation. She was seen and evaluated in the emergency department. CT scan of the abdomen showed evidence of at least a partial bowel obstruction. She was admitted to the hospital and given IV fluids. She denies significant abdominal pain and has been passing a small amount of gas. Urinalysis obtained in the emergency department showed evidence of possible urinary tract infection and she has been treated with ceftriaxone. Shortly after admission she has developed increased respiratory symptoms with shortness of breath, pleuritic chest pain and chills. White blood cell count had been normal on admission and did increase on the second day. Chest x-ray was obtained and showed evidence of a right lung infiltrate. She was started on levofloxacin in addition to current therapy with ceftriaxone. White blood cell count normalized by the following day and she had mild symptoms at the time of discharge including a cough with deep breathing. Urine culture did grow out E. coli which was found to be sensitive to levofloxacin. Bowel obstruction symptoms resolved and she was tolerating clear liquid diet at the time of discharge. She was encouraged to stay an additional day at least for monitoring of bowel obstruction and pneumonia which she refused. She will be discharged home on oral levofloxacin for an additional 5 days. This should provide good coverage for both her pneumonia as well as urinary tract infection. Activity will be as tolerated and she will resume her usual diet. Follow-up appointment will be scheduled with primary care provider within 1 week. She will also be scheduled follow-up appointment in the bariatric clinic. She agrees to return to the emergency department immediately if she develops increased respiratory compromise or recurrent symptoms of abdominal pain. - Patient Instructions Diet: Usual Diet as Tolerated Activity: As Tolerated Showering/Bathing: May Shower Notify Provider of: Fever, Increased Pain, Swelling and Redness, Drainage, Nausea and/or Vomiting Other/Special Instructions: Please schedule follow-up appointment with primary care provider within 1 week. Please schedule follow-up appointment with bariatric clinic. - Discharge Plan *PRESCRIPTION DRUG MONITORING PROGRAM REVIEWED*: Not Applicable *COPY OF PRESCRIPTION DRUG MONITORING REPORT IN PATIENT EDUIN: Not Applicable Prescriptions/Med Rec: levoFLOXacin [Levaquin] 750 mg PO DAILY #5 tab Home Medications: Home Meds levoFLOXacin [Levaquin] 750 mg PO DAILY #5 tab 02/10/21 [Rx] - Discharge Summary/Plan Comment DC Time >30 min.: No - Patient Data Vitals - Most Recent: Last Vital Signs Temp 97.6 F 02/10/21 07:56 Pulse 89 02/10/21 07:56 Resp 16 02/10/21 07:56 BP 113/65 02/10/21 07:56 Pulse Ox 94 L 02/10/21 07:56 Weight - Most Recent: 210 lb 12.191 oz I&O - Last 24 hours: Intake & Output 02/09/21 02/10/21 02/10/21 22:59 06:59 14:59 Intake Total 1075 711 Balance 1075 711 Lab Results - Last 24 hrs: Laboratory Results - last 24 hr 02/10/21 Range/Units 05:45 Sodium 141 (140-148) mmol/L Potassium 3.3 L (3.6-5.2) mmol/L Chloride 106 (100-108) mmol/L Carbon Dioxide 26 (21-32) mmol/L Anion Gap 12.3 (5.0-14.0) mmol/L BUN 5 L (7-18) mg/dL Creatinine 0.6 (0.6-1.0) mg/dL Est Cr Clr Drug Dosing 107.58 mL/min Estimated GFR (MDRD) > 60 (>60) Glucose 138 H (74-106) mg/dL Calcium 7.9 L (8.5-10.1) mg/dL JESSICA Results - Last 24 hrs: Microbiology 02/08/21 17:10 Aerobic Blood Culture - Preliminary Blood - Arm, Right NO GROWTH AFTER 1 DAY Anaerobic Blood Culture - Preliminary NO GROWTH AFTER 1 DAY 02/08/21 17:18 Aerobic Blood Culture - Preliminary Blood - Arm, Right NO GROWTH AFTER 1 DAY Anaerobic Blood Culture - Preliminary NO GROWTH AFTER 1 DAY 02/07/21 17:39 Urine Culture - Final Urine, Bladder Escherichia Coli Med Orders - Current: Current Medications Acetaminophen (Acetaminophen 325 Mg Tab) 650 mg PO Q4H PRN PRN Reason: Pain Last Admin: 02/10/21 08:13 Dose: 650 mg Documented by: Diphenhydramine HCl (Diphenhydramine 25 Mg Cap) 25 - 50 mg PO Q4H PRN PRN Reason: Itching Diphenhydramine HCl (Diphenhydramine 50 Mg/Ml Sdv) 25 - 50 mg IVPUSH Q4H PRN PRN Reason: Itching Fentanyl (Fentanyl 100 Mcg/2 Ml Sdv) 10 - 30 mcg IVPUSH Q1H PRN PRN Reason: Pain Promethazine HCl 12.5 mg/ (Sodium Chloride) 50.5 mls @ 100 mls/hr IV Q8H PRN PRN Reason: NAUSEA Promethazine HCl 25 mg/ Sodium (Chloride) 51 mls @ 100 mls/hr IV Q8H PRN PRN Reason: NAUSEA Ceftriaxone Sodium 1 gm/ (Sodium Chloride) 50 mls @ 100 mls/hr IV Q24H [facility] Last Admin: 02/09/21 17:22 Dose: 100 mls/hr Documented by: Levofloxacin/Dextrose 750 mg/ (Premix) 150 mls @ 100 mls/hr IV Q24H LETY Last Admin: 02/09/21 18:25 Dose: 100 mls/hr Documented by: Sodium Chloride (Normal Saline) 1,000 mls @ 75 mls/hr IV ASDIRECTED [facility] Last Admin: 02/10/21 03:19 Dose: 75 mls/hr Documented by: Lactulose (Lactulose Soln 10 Gm/15 Ml 15 Ml Ud Cup) 20 gm PO BID [facility] Last Admin: 02/10/21 08:20 Dose: Not Given Documented by: Morphine Sulfate (Morphine 4 Mg/Ml Syringe) 1 - 3 mg IVPUSH Q1H PRN PRN Reason: Pain Last Admin: 02/10/21 03:24 Dose: 2 mg Documented by: Nicotine (Nicotine 14 Mg/24 Hr Patch) 14 mg TRDERM Q24H PRN PRN Reason: SMOKING CESSATION Check Scopolamine (Patch) 1 each TOP DAILY [facility] Last Admin: 02/10/21 08:14 Dose: Not Given Documented by: Ondansetron HCl (Ondansetron 4 Mg/2 Ml Sdv) 4 mg IVPUSH Q8H PRN PRN Reason: Nausea Last Admin: 02/07/21 18:38 Dose: 4 mg Documented by: Scopolamine (Scopolamine 1.5 Mg Transdermal Patch) 1.5 mg TOP Q72H PRN PRN Reason: Nausea Last Admin: 02/07/21 21:38 Dose: 1.5 mg Documented by: Discontinued Medications Hydromorphone HCl (Hydromorphone 0.5 Mg/0.5 Ml Syringe) 0.5 mg IVPUSH ONETIME ONE Stop: 02/07/21 13:58 Last Admin: 02/07/21 14:16 Dose: 0.5 mg Documented by: Sodium Chloride (Normal Saline) 1,000 mls @ 999 mls/hr IV ASDIRECTED [facility] Last Admin: 02/07/21 13:54 Dose: 999 mls/hr Documented by: Sodium Chloride (Normal Saline) 70 mls @ 3 mls/sec IV ASDIRECTED ONE Stop: 02/07/21 14:50 Last Admin: 02/07/21 15:04 Dose: 3 mls/sec Documented by: Ceftriaxone Sodium 1 gm/ (Sodium Chloride) 50 mls @ 100 mls/hr IV ONETIME ONE Stop: 02/07/21 16:37 Last Admin: 02/07/21 17:46 Dose: 100 mls/hr Documented by: Sodium Chloride (Normal Saline) 1,000 mls @ 125 mls/hr IV ASDIRECTED [facility] Last Admin: 02/08/21 09:28 Dose: 125 mls/hr Documented by: Potassium Chloride 20 meq/Lidocaine HCl 2 ml/ Sodium Chloride 112 mls @ 56 mls/hr IV Q2H [facility] Stop: 02/09/21 14:29 Last Admin: 02/09/21 15:17 Dose: 56 mls/hr Documented by: Potassium Chloride 20 meq/Lidocaine HCl 2 ml/ Sodium Chloride 112 mls @ 56 mls/hr IV Q2H [facility] Stop: 02/09/21 20:59 Last Admin: 02/09/21 23:23 Dose: 56 mls/hr Documented by: Iopamidol (Iopamidol 612 Mg/Ml 150 Ml Bottle) 129 ml IV . DIRECTED PRN PRN Reason: RADIOLOGY EXAM Last Admin: 02/07/21 15:04 Dose: 129 ml Documented by: Potassium Chloride (Potassium Chloride 20 Meq Tab.Er) 40 meq PO ONETIME ONE Stop: 02/10/21 08:01 Last Admin: 02/10/21 08:19 Dose: 40 meq Documented by: - Exam General: Reports: Alert, Oriented, Cooperative, Mild Distress Lungs: Reports: Clear to Auscultation, Normal Respiratory Effort Cardiovascular: Reports: Regular Rate, Regular Rhythm, No Murmurs GI/Abdominal Exam: Soft, Non-Tender, No Organomegaly, No Distention Extremities: Non-Tender, No Pedal Edema
--- NOTE | 2021-02-10 12:03 | PN ---
DATE OF SERVICE: 02/09/2021 SUBJECTIVE: The patient is slightly improved today. No nausea, vomiting, shortness of breath, or chest pain. OBJECTIVE: VITAL SIGNS: Stable. She is afebrile. CARDIOVASCULAR: Regular rhythm and rate. RESPIRATORY: Lungs are clear to auscultation bilaterally. ABDOMEN: Nontender, nondistended. ASSESSMENT: Constipation/possible partial small-bowel obstruction. PLAN: The patient will be taken to the operating room for diagnostic laparoscopy in the a.m. if she does not start having bowel movements. We cannot perform it today. She does have pneumonia and a bladder infection and the risk would be greater with these two on board; therefore, we will treat this for another 24 hours. If she has had bowel movements, we will stay off the diagnostic laparoscopy. We discussed risks, benefits, alternatives, and limitations of that procedure, the plan today including, but not limited to infection, bleeding, sepsis, bowel injury, requirement for reoperation, chronic pain, and other risks not listed here. The patient understands these risks, wishes to proceed. Joe Wells MD /[id number]
--- NOTE | 2021-02-10 12:16 | PN ---
DATE OF SERVICE: 02/10/2021 SUBJECTIVE: The patient is doing very well, having multiple large bowel movements. Pain is improved. No nausea, vomiting, shortness of breath, or chest pain. OBJECTIVE: VITAL SIGNS: Stable. CARDIOVASCULAR: Regular rhythm and rate. RESPIRATORY: Poor inspiratory effort bilaterally. ASSESSMENT AND PLAN: With respect to the GI activity, she is having multiple bowel movements, nontender, nondistended. We will consider for discharge today. Depending on the pneumonia and bladder infection status, and hospitalist interpretation. Joe Wells MD /[id number]
--- NOTE | 2021-02-11 09:31 | CR ---
Abdomen 2V AP Flat Upright CLINICAL HISTORY: SBO FINDINGS: Patient has had previous abdominal surgery. There are scattered air-filled loops of small bowel in a nonacute pattern. Small bowel distention is diminished since prior study. There is a large amount retained stool throughout the colon. No free air is seen. There is some patchy airspace disease in the right lower lobe similar to prior study IMPRESSION: Previous bariatric surgery Decrease in small bowel distention Moderate fecal retention Persistent patchy right lower lobe airspace disease
--- NOTE | 2021-02-11 11:00 | CR ---
Abdomen 2V AP Flat Upright CLINICAL HISTORY: SBO FINDINGS: There is mild small bowel distention right abdomen. There is moderate fecal retention throughout the colon. This is similar to prior study. IMPRESSION: Persistent mild right small bowel distention. This is increased slightly since prior study. Fecal retention similar to prior study
== END 2021-02-10 10:05 | disposition home or self-care (01) | DRG 388 ==
LOC: JP.ED 12:47 → JP.ICU 16:50 → JP.MS 02-08 19:41
PROVIDERS: ADMIT Surgery; ATTEND Surgery
DX: K56.600 Partial intestinal obstruction, unspecified as to cause (principal); J18.9 Pneumonia, unspecified organism; N30.00 Acute cystitis without hematuria; B96.20 Unspecified Escherichia coli [E. coli] as the cause of diseases classified elsewhere; E86.0 Dehydration; H54.7 Unspecified visual loss; M19.90 Unspecified osteoarthritis, unspecified site; F41.9 Anxiety disorder, unspecified; F32.9 Major depressive disorder, single episode, unspecified; K59.00 Constipation, unspecified; D51.9 Vitamin B12 deficiency anemia, unspecified; F42.9 Obsessive-compulsive disorder, unspecified; Z98.51 Tubal ligation status; Z79.899 Other long term (current) drug therapy; Z87.440 Personal history of urinary (tract) infections; Z98.84 Bariatric surgery status; Z98.890 Other specified postprocedural states; Z20.822 Contact with and (suspected) exposure to COVID-19
CPT/HCPCS: 0241U; 36415; 71046; 71046-26; 74019; 74019-26; 74177; 74177-26; 80048; 80053; 81001; 83690; 85025; 85027; 86140; 87040; 87086; 87088; 87186; A9270-GY; J0696; J1170; J1956; J2001; J2270; J2405; J3480; J3490; J7030; Q9967